=== PATIENT | male | born 1960 | race Caucasian/White ===

== ENCOUNTER 2018-01-12 00:49 | Emergency (ER) | payer OTHER ==
[2018-01-12 01:15] VITALS: RESP 14; TEMP 97.8
[2018-01-12] MEDS ORDERED: Tetanus/Diphtheria Toxoids 0.5 ml Syringe IM ONE (01:38)
[2018-01-12] MEDS ORDERED: Lidocaine 2% MPF (5 ml) Inj ONE (01:46)
[2018-01-12] MEDS ORDERED: Bacitracin 500 Units/gm Oint Foilpak UD ONE (02:32)
--- NOTE | 2018-01-12 02:36 | C.PDOC ---
History Of Present Illness 57 year old male presents to the emergency department status-post cutting his right thumb with a knife while at home [employer]. Patient states that he put coffee grounds on the area to stop the bleeding. Patient denies weakness and numbness, and reports that his tetanus is NOT up to date. Time Seen by Provider: 01/12/18 01:27 Chief Complaint (Nursing): Abnormal Skin Integrity History Per: Patient History/Exam Limitations: no limitations Onset/Duration Of Symptoms: Hrs Current Symptoms Are (Timing): Still Present Location Of Injury: Right: Hand Quality Of Symptoms: Other (laceration) Past Medical History Reviewed: Historical Data, Nursing Documentation, Vital Signs Vital Signs: Last Vital Signs Temp 97.8 F 01/12/18 01:05 Pulse 66 01/12/18 01:05 Resp 14 01/12/18 01:05 BP 144/89 01/12/18 01:05 Pulse Ox 97 01/12/18 01:05 - Medical History PMH: No Chronic Diseases Surgical History: No Surg Hx Family History: States: No Known Family Hx - Social History Hx Alcohol Use: No Hx Substance Use: No - Immunization History Hx Tetanus Toxoid Vaccination: No Hx Influenza Vaccination: No Hx Pneumococcal Vaccination: No Review Of Systems Except As Marked, All Systems Reviewed And Found Negative. Constitutional: Negative for: Fever, Chills Skin: Positive for: Other (laceration to right thumb) Neurological: Negative for: Weakness, Numbness Physical Exam - Physical Exam Appears: Non-toxic, No Acute Distress Skin: Warm, Dry Head: Atraumatic, Normacephalic Eye(s): bilateral: Normal Inspection, PERRL, EOMI Nose: Normal Neck: Normal, Supple Extremity: Normal ROM (of the fingers), Capillary Refill (< 2 seconds), No Deformity, Other (laceration to the distal aspect of the right first digit, with coffee ground material covering the wound.) Pulses: Right Radial: Normal Neurological/Psych: Oriented x3, Normal Speech, Normal Cognition, Normal Motor, Normal Sensation ED Course And Treatment O2 Sat by Pulse Oximetry: 97 (RA) Pulse Ox Interpretation: Normal Progress Note: Plan: Tetanus booster ordered. Patient educated on wound care and instructed to return to the ED in two days for wound check. Laceration - Laceration Repair Right Thumb Wound Length (In cm): 0.5 Description Of Wound: Irregular (cirular) Anesthesia: Lidocaine 2% Wound Examination: Irrigated With Saline, No FB With Wound Exploration, No Tendon Injury With Wound Exploration, Foreign Material Removed W/Irrigation (coffe grinds) Wound Debridement/Revision: Wound Debrided (skin flap loosely attached was removed) Wound Complexity: Simple (Wound vigorously irrigated with peroxide and saline to remove coffee ground material. Anesthetized by digital block, 2% lidocaine with no epi. Wound was scrubbed of all coffee ground material. Wound mostly consisted of skin avulsion which was debrided at the finger tip. Non-adherent dressing with bacitracin applied after debridement. no active bleeding. Pt tolerated well) Disposition Counseled Patient/Family Regarding: Diagnosis, Need For Followup, Rx Given - Disposition Referrals: Steph Foster MD [Staff Provider] - Disposition: HOME/ ROUTINE Disposition Time: 02:33 Condition: STABLE Additional Instructions: Please follow up with PMD in 2 days for wound check Keep wound clean and dry Apply bacitracin oint to area Make appointment with Hand surgeon as needed in a few days Return to ER if worse Prescriptions: Bacitracin Ointment [Bacitracin] 30 gm TOP BID #1 tube Instructions: Wound Care (DC), Common Finger Injuries (DC) Forms: [email or web address] (Congolese), Work Excuse - Clinical Impression Clinical Impression: Fingertip avulsion - 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 - Scribe Statement The provider has reviewed the documentation as recorded by the Scribe (Brad ingram) All medical record entries made by the Scribe were at my direction and personally dictated by me. I have reviewed the chart and agree that the record accurately reflects my personal performance of the history, physical exam, medical decision making, and the department course for this patient. I have also personally directed, reviewed, and agree with the discharge instructions and di sposition.
[2018-01-12 02:48] VITALS: BP 130/80; PULSE 80
[2018-01-12 03:33] VITALS: O2SAT 97
== END 2018-01-12 02:48 | disposition home or self-care (01) ==
LOC: C.ER 00:49
DX: S61.001A Unspecified open wound of right thumb without damage to nail, initial encounter (principal); W26.0XXA Contact with knife, initial encounter; Y92.009 Unspecified place in unspecified non-institutional (private) residence as the place of occurrence of the external cause